=== PATIENT | female | born 1985 | race American Indian/Alaskan Native ===

== ENCOUNTER 2016-08-25 13:34 | Emergency (ER) | payer SELFPAY ==
[2016-08-25 14:32] LABS: Hematocrit 42.1 % (30.3-42.9); Hemoglobin 13.8 gm/dl (10.1-14.3); Mean Corpuscular HGB Conc 33 % (30-34); Mean Corpuscular Hemoglobin 28 pg (28-32); Mean Corpuscular Volume 86 fl (79-97); Platelet Count 151 K/mm3 (140-440); Red Blood Count 4.93 M/mm3 (3.65-5.03); Red Cell Distribution Width 13.2 % (13.2-15.2)
[2016-08-25 14:33] LABS: White Blood Count 2.2 K/mm3 (4.5-11.0)
[2016-08-25 14:46] LABS: Alanine Aminotransferase 115 units/L (7-56); Albumin/Globulin Ratio 1.2 %; Alkaline Phosphatase 149 units/L (35-129); Anion Gap 22 mmol/L; BUN/Creatinine Ratio 23.33; Bilirubin,Total 0.4 mg/dL (0.1-1.2); Blood Urea Nitrogen 14 mg/dL (7-17); Calcium 10.8 mg/dL (8.4-10.2); Carbon Dioxide 20 mmol/L (22-30); Chloride 98.5 mmol/L (98-107); Glucose 92 mg/dL (65-100); Potassium 3.9 mmol/L (3.6-5.0); Sodium 137 mmol/L (137-145); Total Protein 7.3 g/dL (6.3-8.2)
[2016-08-25 14:51] LABS: Eosinophils % (Auto) 0.4 % (0.0-4.3)
[2016-08-25 15:36] LABS: Bacteria,Urine 2+ /HPF (Negative); Bilirubin,Urine NEG (Negative); Blood,Urine LG (Negative); Ketones,Urine NEG (Negative); Leukocyte Esterase,Urine NEG (Negative); Mucus,Urine FEW /HPF; Nitrite,Urine NEG (Negative); Urobilinogen,Urine < 2.0 mg/dL (<2.0)
[2016-08-25 15:37] LABS: RBC,Urine > 182.0 /HPF (0.0-6.0)
[2016-08-25 16:44] LABS: Basophils % (Manual) 0 % (0.0-1.8); Blastocytes % (Manual) 0 %
[2016-08-25 16:46] LABS: Diff Status Complete; Elliptocytes Few; Platelet Estimate Consistent w Auto
--- NOTE | 2016-08-25 16:47 | XRay Report ---
CHEST 2 VIEWS INDICATION: Cough, fever. COMPARISON: None similar at this institution. FINDINGS: PA and lateral chest radiographs demonstrate normal cardiomediastinal silhouette. Minimal thickening along the major fissure on the lateral view. No dense focal infiltrate, pleural effusions or CHF. Subtle haziness towards the lung bases on the frontal view though nonspecific, presumed related to overlying breast soft tissues. Unremarkable bones. CONCLUSION: No definite acute chest radiographic abnormality, as described. Thank you for the opportunity to participate in this patient's care.
[2016-08-25] MEDS ORDERED: TORADOL IV ONE (18:10)
[2016-08-25] MEDS ORDERED: TYLENOL PO ONE (18:10)
--- NOTE | 2016-08-25 18:12 | Emergency Department Report ---
ED General Adult HPI - General Chief complaint: Fever Stated complaint: SEVERE HEADACHE Time Seen by Provider: 08/25/16 17:51 Source: patient, RN notes reviewed, old records reviewed Mode of arrival: Ambulatory Limitations: No Limitations - History of Present Illness Initial comments: This is a 30-year-old female. Has a past medical history of asthma, guarding, psychiatric disease. She does not have a local primary care doctor. Complains of total body aches, cough, headache, sore throat, malaise, fatigue. Symptoms have been present for 2 days. They're constant. They have no exacerbating or relieving factors. Has a mild headache, mild nausea, no abdominal pain, admits to muscular pain in her total body and bones. there is no neck stiffness, there is no irritability, patient admits to cough and mucus production. Patient denies irritative and obstructive urinary symptoms. -: Gradual Location: head, face, mouth, back, left, right, upper extremity, lower extremity Quality: aching Consistency: constant Improves with: rest Associated Symptoms: cough, diaphoresis, fever/chills, headaches, loss of appetite, malaise, weakness - Related Data Home Medications Medication Instructions Recorded Confirmed Last Taken Albuterol Sulfate [Ventolin HFA] 2 puff IH Q4H PRN 07/24/15 07/24/15 Unknown Previous Rx's Medication Instructions Recorded Last Taken Type Ibuprofen [Motrin] 600 mg PO Q8H PRN #30 tablet 08/25/16 Unknown Rx Levofloxacin [Levaquin] 750 mg PO QDAY #5 tablet 08/25/16 Unknown Rx Metoclopramide [Reglan] 10 mg PO QID PRN #30 tablet 08/25/16 Unknown Rx Allergies Allergy/AdvReac Type Severity Reaction Status Date / Time amoxicillin Allergy Rash Verified 07/24/15 07:37 bee venom (honey bee) Allergy Rash Verified 07/24/15 07:37 ED Review of Systems ROS: Stated complaint: SEVERE HEADACHE Other details as noted in HPI Constitutional: fever, malaise, weakness Eyes: denies: eye discharge ENT: throat pain, congestion Respiratory: cough Cardiovascular: as per HPI Gastrointestinal: as per HPI Genitourinary: as per HPI. denies: dysuria Musculoskeletal: arthralgia, myalgia Skin: denies: lesions Neurological: weakness Psychiatric: anxiety ED Past Medical Hx - Past Medical History Hx GERD: Yes Hx Psychiatric Treatment: Yes Hx Asthma: Yes - Social History Smoking Status: Current Every Day Smoker Substance Use Type: Alcohol - Medications Home Medications: Home Medications Medication Instructions Recorded Confirmed Last Taken Type Albuterol Sulfate [Ventolin HFA] 2 puff IH Q4H PRN 07/24/15 07/24/15 Unknown History Ibuprofen [Motrin] 600 mg PO Q8H PRN #30 tablet 08/25/16 Unknown Rx Levofloxacin [Levaquin] 750 mg PO QDAY #5 tablet 08/25/16 Unknown Rx Metoclopramide [Reglan] 10 mg PO QID PRN #30 tablet 08/25/16 Unknown Rx ED Physical Exam - General Limitations: No Limitations General appearance: alert, in distress - Head Head exam: Present: atraumatic, normocephalic - Eye Eye exam: Present: normal appearance, EOMI. Absent: conjunctival injection, nystagmus - ENT ENT exam: Present: normal exam, normal orophraynx, mucous membranes moist, TM's normal bilaterally, normal external ear exam - Neck Neck exam: Present: normal inspection, full ROM. Absent: tenderness, meningismus - Respiratory Respiratory exam: Present: normal lung sounds bilaterally. Absent: respiratory distress, wheezes, rales, rhonchi, stridor, chest wall tenderness - Cardiovascular Cardiovascular Exam: Present: normal rhythm, tachycardia, normal heart sounds. Absent: systolic murmur, diastolic murmur, rubs, gallop - GI/Abdominal GI/Abdominal exam: Present: soft, normal bowel sounds. Absent: distended, tenderness, guarding, rebound, rigid, pulsatile mass - Extremities Exam Extremities exam: Present: normal inspection, full ROM, normal capillary refill. Absent: tenderness, pedal edema, joint swelling, calf tenderness - Back Exam Back exam: Present: normal inspection, full ROM. Absent: tenderness, CVA tenderness (R), CVA tenderness (L), muscle spasm, paraspinal tenderness, vertebral tenderness - Neurological Exam Neurological exam: Present: alert, oriented X3, other (Extraocular movements intact. Tongue midline. No facial droop. Facial sensation intact to light touch in the V1, V2, V3 distribution bilaterally. 5 and 5 strength in 4 extremities.. Sensation is intact to light touch in 4 extremities.). Absent: motor sensory deficit - Psychiatric Psychiatric exam: Present: anxious - Skin Skin exam: Present: warm, dry, intact, normal color. Absent: rash ED Course Vital Signs 08/25/16 08/25/16 08/25/16 13:41 17:57 18:00 Temperature 98.3 F Pulse Rate 147 H Respiratory 20 Rate Blood Pressure 151/89 143/79 O2 Sat by Pulse 97 98 Oximetry 08/25/16 08/25/16 08/25/16 18:10 18:20 18:30 Temperature Pulse Rate Respiratory Rate Blood Pressure 143/79 143/79 143/79 O2 Sat by Pulse 100 99 100 Oximetry 08/25/16 08/25/16 08/25/16 18:40 18:50 19:00 Temperature Pulse Rate Respiratory Rate Blood Pressure 143/79 143/79 143/79 O2 Sat by Pulse 100 100 99 Oximetry 08/25/16 08/25/16 08/25/16 19:10 19:26 19:30 Temperature Pulse Rate Respiratory Rate Blood Pressure 143/79 143/79 143/79 O2 Sat by Pulse 100 100 Oximetry 08/25/16 08/25/16 08/25/16 19:40 19:50 20:00 Temperature Pulse Rate Respiratory Rate Blood Pressure 143/79 143/79 143/79 O2 Sat by Pulse 100 100 100 Oximetry 08/25/16 08/25/16 08/25/16 20:10 20:20 20:30 Temperature Pulse Rate Respiratory Rate Blood Pressure 143/79 143/79 128/75 O2 Sat by Pulse 100 99 100 Oximetry 08/25/16 08/25/16 08/25/16 20:40 20:50 21:00 Temperature Pulse Rate Respiratory Rate Blood Pressure 128/75 128/75 118/67 O2 Sat by Pulse 100 100 99 Oximetry 08/25/16 08/25/16 21:05 21:11 Temperature Pulse Rate 96 H Respiratory Rate Blood Pressure 118/67 O2 Sat by Pulse 100 Oximetry - Reevaluation(s) Reevaluation #1: 08/25/16 19:28 Differential diagnosis: Influenza, influenza-like illness, bronchitis, atypical presentation of urinary tract infection, pneumonia, pharyngitis Assessment and plan: 30-year-old female who reports fever and chills and influenza like illness for approximately 48 hours. She is afebrile rectally but tachycardic. There appears to be a significant anxiety components. She has no neck pain or stiffness, and there are no meningeal signs, she has a negative jolt accentuation test, therefore, I do not believe her clinical presentation is consistent with encephalitis or meningitis. Her influenza swab is negative, she does not have classic urinary symptoms, but her urinalysis does suggest a possible urinary tract infection. She will be treated symptomatically, and loaded empirically with 1 g of ceftriaxone to cover for possible presentation of atypical pyelonephritis. Given her tachycardia, a troponin was sent to screen the patient for myocarditis /pericarditis, but it was negative. Furthermore, a creatinine kinase was also negative, thus excluding rhabdomyolosis. We will await normalization of her vital signs. Reevaluation #2: 08/25/16 19:34 patient appears much more comfortable. tolerating liquids. heart rate 107. states she gets a rash to amoxicillin but no anaphalyxis. will continue her fluid resuscitation. will d/c once tachycardia resolves Reevaluation #3: 08/25/16 21:06 tachycardia resolved. Tolerating liquid feeds. Walks with a steady gait. No neck pain or neck stiffness. Patient will be discharged. Nonspecific transaminitis and leukopenia are appreciated. Patient may have acute HIV conversion syndrome, but she can follow-up with the primary care doctor for this. She is specifically instructed to follow with the primary care doctor for these abnormalities. She is well appearing, tolerating liquid feeds, and is instructed to follow up closely. 08/25/16 21:12 ED Medical Decision Making - Lab Data Result diagrams: 08/25/16 14:06 08/25/16 14:06 - Radiology Data Radiology results: report reviewed, image reviewed Two-view x-ray of the chest demonstrates no acute disease, subtle haziness toward the lung bases on the frontal view, may be related to overlying breast tissue. Unremarkable bones. No acute definite radiographic abnormality Critical care attestation.: If time is entered above; I have spent that time in minutes in the direct care of this critically ill patient, excluding procedure time. ED Disposition Clinical Impression: Influenza-like symptoms Disposition: DISCHARGED TO HOME OR SELFCARE Is pt being admited?: No Does the pt Need Aspirin: No Condition: Stable Instructions: Acute Pyelonephritis (ED) Additional Instructions: Laboratory studies indicated decreased white blood cell count, nonspecific elevation in liver function tests, possible urinary tract infection. Cultures was sent today, results will be available in the next 3-5 days. Take the pain medication, nausea medication, antibiotic therapy as directed. Cultures were sent today, and results will be available in the next 3-5 days. Please have a primary care doctor contact the medical records department to obtain culture results. I recommend that you follow-up with the primary care doctor within the next 2 days for repeat evaluation[address] Dr. Fulton is a local primary care doctor. [facility] is a local medical clinic. If you are unable to secure an outpatient follow-up appointment, I recommend that you return to the emergency room for a repeat checkup/evaluation. I do recommend that you follow with a primary care doctor for your abnormal blood test to make certain that you do not have blood borne diseases such as hepatitis, HIV. Therefore, it is very important to closely follow up as an outpatient as directed. Please return to the ER right away with new pain, worsened pain, migration of pain, fevers or chills, nausea or vomiting, inability to tolerate liquid feeds. Avoid consumption of alcohol. Prescriptions: Ibuprofen [Motrin] 600 mg PO Q8H PRN #30 tablet PRN Reason: Pain Levofloxacin [Levaquin] 750 mg PO QDAY #5 tablet Metoclopramide [Reglan] 10 mg PO QID PRN #30 tablet PRN Reason: Nausea Referrals: PRIMARY CAREMD [Primary Care Provider] - 3-5 Days EVON FULTON MD [Staff Physician] - 3-5 Days [facility] [Provider Group] - 3-5 Days
[2016-08-25] MEDS ORDERED: NACL 0.9% 1000 ML 1,000 ML IV ONE (18:18)
[2016-08-25] MEDS ORDERED: NACL 0.9% 500 ML IV SCH ×2 (19:00)
[2016-08-25 19:03] LABS: Creatine Kinase 25 units/L (30-135)
[2016-08-25] MEDS ORDERED: ROCEPHIN/NS 1 GM/50 ML 1 GM/50 ML BAG IV ONE (19:34)
[2016-08-25 21:12] VITALS: BP 118/67
== END 2016-08-25 21:53 | disposition home or self-care (01) ==
LOC: ED 13:34
DX: J11.1 Influenza due to unidentified influenza virus with other respiratory manifestations (principal); K21.9 Gastro-esophageal reflux disease without esophagitis; J45.909 Unspecified asthma, uncomplicated; F17.200 Nicotine dependence, unspecified, uncomplicated; Z88.0 Allergy status to penicillin; Z91.030 Bee allergy status
CPT/HCPCS: 36415; 71020; 80053; 81001; 81025; 82140; 82550; 84484; 85007; 85025; 87086; 87116; 87400; 87430; 96361; 96365; 96375; 99284; J0696; J1885; J7030